=== PATIENT | male | born 1950 | race Caucasian/White ===

== ENCOUNTER 2025-03-20 10:46 | Emergency (ER) | payer MEDICARE | END 2025-03-20 14:43 | disposition home or self-care (01) | LOC: JP.ED 10:46 | DX: S02.85XA Fracture of orbit, unspecified, initial encounter for closed fracture (principal); E78.00 Pure hypercholesterolemia, unspecified; M19.90 Unspecified osteoarthritis, unspecified site; Z79.899 Other long term (current) drug therapy; W01.0XXA Fall on same level from slipping, tripping and stumbling without subsequent striking against object, initial encounter | CPT/HCPCS: 70486; 99283 ==